=== PATIENT | female | born 1955 | race Caucasian/White ===

== ENCOUNTER → 2016-09-12 | Outpatient (CLI) | payer OTHER | END | disposition home or self-care (01) | LOC: MMGSC 14:17 | PROVIDERS: ATTEND Family Medicine | DX: N39.0 Urinary tract infection, site not specified (principal) | CPT/HCPCS: 87086 ==

== ENCOUNTER → 2016-12-23 | Outpatient (CLI) | payer OTHER ==
[2016-12-23 20:50] LABS: Basophils % (A) 1 %; CHCM 36.9; Eosinophils # (A) 0.1 k/uL (0-0.7); Eosinophils % (A) 1 %; HCT 43.9 % (34.0-46.0); HDW 2.59; HGB 15.7 gm/dL (11.4-16.0); Luc # (Auto) 0.15; Luc % (Auto) 3; Lymphocytes # (A) 1.3 k/uL (1.0-4.8); Lymphocytes % (A) 21 %; MCH 33.1 pg (25.0-35.0); MCHC 35.7 g/dL (31.0-37.0); MCV 92.7 fL (80.0-100.0); Mean Platelet Volume 9.1; Monocytes # (A) 0.4 k/uL (0-1.0); Monocytes % (A) 6 %; Neutrophils # (A) 4.2 k/uL (1.3-7.7); Neutrophils % (A) 68 %; RBC 4.74 m/uL (3.80-5.40); RDW 12.1 % (11.5-15.5); WBC 6.1 k/uL (3.8-10.6); WBC (Perox) 6.49
[2016-12-23 21:04] LABS: ALT 60 U/L (9-52); AST 50 U/L (14-36); Alkaline Phosphatase 71 U/L (38-126); Anion Gap 11 mmol/L; Blood Urea Nitrogen 13 mg/dL (7-17); Calcium 9.5 mg/dL (8.4-10.2); Carbon Dioxide 26 mmol/L (22-30); Chloride 101 mmol/L (98-107); Glucose 94 mg/dL (74-99); Non-African American GFR(MDRD) >60 (>60 ml/min/1.73 sqM); Potassium 3.4 mmol/L (3.5-5.1); Sodium 138 mmol/L (137-145); Total Protein 7.1 g/dL (6.3-8.2)
== END | disposition home or self-care (01) ==
LOC: MMGSC 11:37
PROVIDERS: ATTEND Family Medicine
DX: N39.0 Urinary tract infection, site not specified (principal); D72.819 Decreased white blood cell count, unspecified; R79.89 Other specified abnormal findings of blood chemistry
CPT/HCPCS: 36415; 80053; 85025; 87086

== ENCOUNTER → 2017-01-09 | Outpatient (CLI) | payer OTHER ==
--- NOTE | 2017-01-09 21:21 | CT ---
EXAMINATION TYPE: CT abdomen pelvis w con DATE OF EXAM: 01/09/2017 COMPARISON: NONE HISTORY: Hematuria and Abnormal labs CT DLP: 728 mGycm Automated exposure control for dose reduction was used. TECHNIQUE: Helical acquisition of images was performed from the lung bases through the pelvis. CONTRAST: Performed with Oral Contrast and with IV Contrast, patient injected with 100 mL of Omnipaque 300. FINDINGS: Lung bases are clear. There is no pleural effusion. There is a 6 cm area of isodensity with the liver in the posterior medial right lobe of the liver. Th is has central low attenuation and a relatively well-defined margin. The mass appears to have lower a ttenuation in the liver on the delayed images and this suggests tumor neovascularity. The bile ducts are not dilated. Spleen and pancreas appear normal. Gallbladder appears normal. There is no adrenal mass. Kidneys show satisfactory contrast opacification. There is no hydronephrosi s. There is no retroperitoneal adenopathy. Abdominal aorta is atheromatous. There is no ascites. Appe ndix is not seen. There is no sign of appendicitis. I see no intestinal wall thickening. There are no dilated loops. Bladder is almost empty. There is a 2.3 cm area of increased attenuation at the right side of the uri nary bladder. This could be a bladder mass. There is no free fluid in the pelvis. I see no pelvic lymphadenopathy. There are multiple varicose ve ins in the left adnexal region. I see no bony destructive process. IMPRESSION: THERE IS A SOFT TISSUE DENSITY PROBABLE ENHANCING MASS IN THE URINARY BLADDER ON THE RIGHT SIDE THAT IS SUSPICIOUS FOR PRIMARY BLADDER TUMOR. CYSTOSCOPY IS RECOMMENDED FOR FURTHER EVALUATION. THERE IS A MIXED DENSITY MASS IN THE LIVER THAT IS NONSPECIFIC. I WOULD CONSIDER BOTH BENIGN AND CHANCE GNANT TUMOR. FOLLOW-UP IS RECOMMENDED. MRI SCAN MIGHT BE HELPFUL FOR FURTHER EVALUATION IF CLINICALLY INDICATED. There is equivocal 1 cm area of hypodensity in the posterior right lobe of the liver that raises the possibility of metastatic disease.
== END | disposition home or self-care (01) ==
LOC: RADCTMAIN 18:00
PROVIDERS: ATTEND Family Medicine
DX: M79.89 Other specified soft tissue disorders (principal); K76.89 Other specified diseases of liver; R16.0 Hepatomegaly, not elsewhere classified; R31.9 Hematuria, unspecified
CPT/HCPCS: 74177; Q9967

== ENCOUNTER 2017-03-02 08:49 | Day surgery (SDC) | payer OTHER ==
[2017-03-02] MEDS ORDERED: HYDROmorphone 1 MG/ML 1 ML SYRINGE IVP PRN (09:24)
[2017-03-02] MEDS ORDERED: ALPRAZolam 0.5 MG TAB PO ONE (09:24)
[2017-03-02 09:54] LABS: Prothrombin Time 10.4 sec (9.0-12.0)
[2017-03-02 10:01] VITALS: RESP 16
[2017-03-02 11:52] VITALS: TEMP 96.2
--- NOTE | 2017-03-02 12:00 | US ---
EXAMINATION TYPE: US biopsy liver DATE OF EXAM: 03/02/2017 HISTORY: liver mass. FINDINGS: Maximal barrier technique was utilized. The skin overlying a suitable path to the patient' s mass was localized with ultrasound and the overlying skin prepped and draped. Ultrasound was utili zed with sterile technique. Lidocaine was used for local anesthesia. A skin maurice was made with a sc alpel. An 18-gauge needle was advanced under direct ultrasound guidance and core specimen obtained o f the mass. Specimen submitted in formalin to Pathology. Following the procedure, hemostasis achiev ed and the patient is discharged in stable condition without complication. IMPRESSION:STATUS POST ULTRASOUND GUIDED CORE BIOPSY OF liver MASS, PATHOLOGY IS PENDING. THIS PROCE DURE IS PERFORMED BY THE UNDERSIGNED.
[2017-03-02 15:52] VITALS: BP 130/74; PULSE 68
== END 2017-03-02 16:11 | disposition home or self-care (01) ==
LOC: RADPROMAIN 08:49 → 3OBS 11:00 → RADPROMAIN 16:11
PROVIDERS: ATTEND Internal Medicine Gastroenterology
DX: C22.0 Liver cell carcinoma (principal); K76.0 Fatty (change of) liver, not elsewhere classified
CPT/HCPCS: 85049; 85610; 88313; 88342; 88307; 88341; 96374; 36415; 47000; 76942; J1170

== ENCOUNTER → 2017-03-14 | Outpatient (CLI) | payer OTHER ==
--- NOTE | 2017-03-15 13:02 | PE ---
EXAMINATION TYPE: PET CT fusion skull to thigh DATE OF EXAM: 03/14/2017 COMPARISON: CT abdomen pelvis 01/09/2017 Prior PET/CT: None at this location at the time of interpretation. HISTORY: Liver cancer, history of prior bladder cancer and thyroid cancer TECHNIQUE: Following the intravenous administration of 14.9 mCi of F-18 FDG, whole body images are p erformed from the skull base to the midthigh. Images are reviewed on the computer in the coronal, ax ial, and sagittal planes. Reconstructed rotating images are created on independent workstation and r eviewed on the computer. A localization and attenuation correction CT is performed in conjunction w ith the PET scan. DLP: 444.24 mGycm SCAN: Initial Blood glucose: 89 mg/dL Average Mediastinum SUV: 1.4 Average Liver SUV: 2.2 FINDINGS: NECK: No abnormal uptake THORAX: 2 abnormal areas of uptake are adjacent in the subcarinal region with an SUV value of 4.6 and 4.1 suspicious for metastatic disease. PET image 85. No additional abnormal uptake is within the tho rax. ABDOMEN: No abnormal uptake. Specifically, no abnormal uptake is identified within the liver. There i s subtle photopenic area within the caudate lobe which is expanded on the localization CT. Low metabo lic abnormality should be considered. PELVIS: No abnormal uptake. There is normal uptake within the urinary bladder. Underlying neoplasm ca nnot be evaluated given the radiotracer within the urinary bladder at this time. OSSEOUS STRUCTURES: No abnormal uptake LOCALIZATION CT: Lymphadenopathy is within the subcarinal region corresponding to the abnormal uptake regions. The large caudate lobe is evident. This has an SUV value 1.70. Low Metabolic activity shoul d be considered. COMPARISON: Comparison is made with the March 02 2017 ultrasound-guided biopsy of the liver as well as the prior CT of 01/09/2017. IMPRESSION: 1. Patient's reported liver cancer has low metabolic activity on the PET scan with an SUV value in th e range of 1.7 which is lower than the adjacent liver metabolic activity averaging 2.2. 2. There is hypermetabolic activity within the subcarinal enlarged lymph nodes. Given the low metabol ic activity within the liver lesion, a different type of metastasis should be considered at this leve l. 3. Patient's urinary bladder cannot be adequately evaluated on the PET scan. Recurrent and primary ur inary bladder neoplasm cannot be excluded.
== END | disposition home or self-care (01) ==
LOC: RADPETMAIN 11:52
PROVIDERS: ATTEND Internal Medicine Hematology & Oncology
DX: C22.0 Liver cell carcinoma (principal); R59.0 Localized enlarged lymph nodes
CPT/HCPCS: 78815; A9552

== ENCOUNTER → 2017-04-22 | Outpatient (CLI) | payer OTHER ==
--- NOTE | 2017-04-22 10:21 | CT ---
EXAMINATION TYPE: CT chest w con DATE OF EXAM: 04/22/2017 COMPARISON: PET/CT 03/14/2017. Also, CT 01/09/2017. HISTORY: 61-year-old female Abn PET, lymphadenopathy TECHNIQUE: Contiguous axial scanning of the chest after the administration of 100 mL of Omnipaque 300 . Coronal/sagittal reconstructions performed. CT DLP: 646mGycm. Automatic exposure control utilized for a dose reduction. FINDINGS: The heart is normal size without pericardial effusion. Aorta is normal caliber with mild atherosclerotic arch calcifications and conventional branching gayathri marium. Redemonstrated is borderline to mildly enlarged subcarinal lymph nodes measuring 1.5 and 1.3 cm on ax ial series, image 27 and 29. There is otherwise no thoracic lymphadenopathy identified. Some focal patchy opacity peripheral right upper lobe, axial image 16 is unchanged from 03/14/2017, po ssibly representing some scarring. Right apical pleural-parenchymal scarring is present. No suspiciou s pulmonary nodule or mass is seen. Tiny hiatal hernia. Visualized upper abdomen shows heterogeneous arterial phase enhancing lesion in the right central luke er which is mild mass effect onto the posterior margin of the portal vein. As measures approximately 7.2 cm, and axial image 55 it does not seem to have significantly changed from 03/14/2017. Bones: Endplate spondylosis midthoracic spine. No osseous destructive process. IMPRESSION: 1. The borderline to mildly enlarged subcarinal lymph nodes measuring up to 1.5 cm are relatively unc hanged from the 03/14/2017 PET/CT. No other thoracic lymphadenopathy or suspicious pulmonary nodule/ma ss. 2. Redemonstrated 7.2 cm hypervascular central right hepatic lobe mass. The mass appears relatively s imilar in size as compared to PET/CT of 03/14/2017 but seems to be slightly larger from 01/09/2017 wher e it remeasured 6.6 cm.
== END | disposition home or self-care (01) ==
LOC: RADCTMAIN 08:41
PROVIDERS: ATTEND Internal Medicine Critical Care Medicine
DX: R59.9 Enlarged lymph nodes, unspecified (principal); Z88.1 Allergy status to other antibiotic agents
CPT/HCPCS: 71260; Q9967

== ENCOUNTER 2017-04-23 11:22 | Day surgery (SDC) | payer OTHER ==
[2017-04-21 15:46] VITALS: BMI 29.2
[~2017-04-23 11:22] MED LIST: ALBUTEROL NEB (CONC) 2.5 MG/0.5 ML INHALATION ONE; LACTATED RINGERS 1,000 ML IV ONE; LACTATED RINGERS 1,000 ML IV SCH; LIDOCAINE 2% (PF) 20 MG/ML 10ML INHALATION ONE; Pre Op ABX Message 1 EACH MISC MISCELLANE ONE
[2017-04-23 11:39] VITALS: TEMP 98
[2017-04-23] MEDS ORDERED: LIDOCAINE 1% 20 ML VIAL (10MG/ML) FOR IV START INTRADERMA ONE (11:44)
[2017-04-23 11:48] VITALS: RESP 16
[2017-04-23] MEDS ORDERED: PROPOFOL 10 MG/ML 20 ML VIAL IV ONE (12:38)
[2017-04-23] MEDS ORDERED: LIDOCAINE 1% INJ 10MG/ML (20 ML MDV) ONE (12:38)
[2017-04-23] MEDS ORDERED: LIDOCAINE 2% INJ 20 MG/ML INTRATRACH ONE (12:43)
--- NOTE | 2017-04-23 13:07 | P.PCN ---
Date of Procedure: 04/23/17 Preoperative Diagnosis: Subcarinal lymphadenopathy Postoperative Diagnosis: Same Procedure(s) Performed: Flexible bronchoscopy and transbronchial needle aspirate of subcarinal lymph node Anesthesia: MAC Surgeon: Guru Cervantes Estimated Blood Loss (ml): 5 Pathology: other Condition: stable Disposition: same day Operative Findings: This procedure was done under conscious sedation with anesthetic it is being administered by anesthesia the bedside. After achieving adequate sedation the flexible bronchoscope was inserted to the right nostril and was advanced into the upper airway. Examination of the posterior oropharynx larynx and epiglottis and vocal cords was done and all of his upper airway structures were within normal limits. A total of 2 mL of 1% lidocaine was applied to the vocal cords and following that the bronchoscope was advanced into the upper trachea. Examination of the tracheal bronchial tree was done. Trachea, bilateral mainstem bronchi, right upper lobe bronchus, bronchus intermedius, right middle lobe bronchus, right lower lobe bronchus, left upper lobe bronchus and left lower lobe bronchus were all inspected and there were within normal limits and there were patent without any endobronchial tumors abnormalities noted. Following that the bronchoscope was moved to the main trachea and using a 20- gauge needle, transbronchial needle aspirate of the subcarinal lymph node was done. This was a histology needle and a total of 5-6 passes were obtained. No bedside complications. Total amount of bleeding was less than 5 ML's. Therapeutic airway suctioning was done and the bronchoscope was removed and the samples were sent for analysis. The patient be transferred to recovery in stable condition .
[2017-04-23 13:28] VITALS: BP 121/67; PULSE 69
== END 2017-04-23 13:41 | disposition home or self-care (01) ==
LOC: ORWHC2ENDO 11:22
PROVIDERS: ATTEND Internal Medicine Critical Care Medicine
DX: R59.0 Localized enlarged lymph nodes (principal); E78.5 Hyperlipidemia, unspecified; I10 Essential (primary) hypertension; E03.9 Hypothyroidism, unspecified; K75.9 Inflammatory liver disease, unspecified; Z85.05 Personal history of malignant neoplasm of liver; Z85.51 Personal history of malignant neoplasm of bladder; Z85.850 Personal history of malignant neoplasm of thyroid; Z87.891 Personal history of nicotine dependence; Z80.8 Family history of malignant neoplasm of other organs or systems; Z80.51 Family history of malignant neoplasm of kidney; Z79.82 Long term (current) use of aspirin; Z79.899 Other long term (current) drug therapy; Z88.1 Allergy status to other antibiotic agents
CPT/HCPCS: 94640; 88305; 88173; 31629; J2001 ×3; J2704

== ENCOUNTER → 2017-08-25 | Outpatient (CLI) | payer OTHER ==
[2017-08-25 19:20] LABS: ALT 37 U/L (9-52); AST 25 U/L (14-36); Albumin 4.1 g/dL (3.5-5.0); Alkaline Phosphatase 93 U/L (38-126); Anion Gap 10 mmol/L; Blood Urea Nitrogen 19 mg/dL (7-17); Calcium 10.2 mg/dL (8.4-10.2); Carbon Dioxide 27 mmol/L (22-30); Chloride 103 mmol/L (98-107); Cholesterol 179 mg/dL (<200); Glucose 95 mg/dL (74-99); HDL Cholesterol 59 mg/dL (40-60); LDL Cholesterol,Calculated 89 mg/dL (0-99); Potassium 4.4 mmol/L (3.5-5.1); Sodium 140 mmol/L (137-145); Total Bilirubin 0.3 mg/dL (0.2-1.3); Total Protein 6.7 g/dL (6.3-8.2); Triglycerides 156 mg/dL (<150)
[2017-08-25 19:36] LABS: T4, Free (Free Thyroxine) 1.32 ng/dL (0.78-2.19)
== END | disposition home or self-care (01) ==
LOC: MMGSC 10:39
PROVIDERS: ATTEND Family Medicine
DX: Z00.00 Encounter for general adult medical examination without abnormal findings (principal)
CPT/HCPCS: 36415; 80053; 80061; 84439; 84443

== ENCOUNTER → 2017-09-12 | Outpatient (CLI) | payer OTHER ==
--- NOTE | 2017-09-14 16:59 | PE ---
Nuclear medicine PET/CT HISTORY: Liver cancer, subsequent Patient received 14.3 mCi F-18 FDG intravenously in delayed scanning was performed from the skull bas e to the mid thighs. Localization and attenuation correction CT scan was also performed. Exam is santos elated to prior nuclear medicine PET/CT 05/23/2017 Neck and chest: There is no evident adenopathy. No suspicious hypermetabolic uptake. No mediastinal, axillary, or hilar adenopathy. No evident lung mass. Some apical and upper lobe scarring again noted on the right. Abdomen pelvis: The liver mass is not well appreciated on noncontrast exam. There is no associated hy permetabolic uptake. No retroperitoneal adenopathy. There is no ascites. Osseous structures are stable. IMPRESSION: There is improvement in the appearance of the previously abnormal nuclear medicine PET/CT . No suspicious hypermetabolic uptake.
== END | disposition home or self-care (01) ==
LOC: RADPETMAIN 10:10
PROVIDERS: ATTEND Internal Medicine Hematology & Oncology
DX: C22.8 Malignant neoplasm of liver, primary, unspecified as to type (principal)
CPT/HCPCS: 78815; A9552

== ENCOUNTER → 2017-10-12 | Outpatient (CLI) | payer OTHER ==
--- NOTE | 2017-10-13 09:07 | MM ---
Reason for exam: screening (asymptomatic). Last mammogram was performed 1 year and 2 months ago. History: Patient is postmenopausal and history of other cancer. Taking hormonal contraceptives for 5 years. Physical Findings: A clinical breast exam by your physician is recommended on an annual basis and results should be correlated with mammographic findings. MG Screening Mammo w CAD Bilateral CC and MLO view(s) were taken. Prior study comparison: August 25, 2016, mammogram, performed at [facility]. August 21, 2015, mammogram, performed at [facility]. July 28, 2014, mammogram, performed at [facility]. Finding: There is an increasing group of calcifications in the upper outer quadrant of the left breast 8cm from the nipple. New finding since August 25, 2016, August 21, 2015, and July 28, 2014. ASSESSMENT: Incomplete: need additional imaging evaluation, BI-RAD 0 RECOMMENDATION: Special view mammogram of the left breast. [facility] will attempt to contact patient to return for supplemental views.
== END | disposition home or self-care (01) ==
LOC: RADMAMWWP 07:16
PROVIDERS: ATTEND Family Medicine
DX: Z12.31 Encounter for screening mammogram for malignant neoplasm of breast (principal)
CPT/HCPCS: 77067

== ENCOUNTER → 2017-10-21 | Outpatient (CLI) | payer OTHER ==
--- NOTE | 2017-10-21 09:40 | MM ---
Reason for exam: additional evaluation requested from abnormal screening. Last mammogram was performed less than 1 month ago. History: Patient is postmenopausal and history of other cancer. Taking hormonal contraceptives for 5 years. Physical Findings: Nurse did not find any significant physical abnormalities on exam. MG Work Up Mamm w CAD LT CC with magnification, ML with magnification, and ML view(s) were taken of the left breast. Prior study comparison: October 12, 2017, bilateral MG screening mammo w CAD. August 25, 2016, mammogram, performed at [facility]. There are scattered fibroglandular densities. Finding: There are typically benign coarse, grouped/clustered calcifications in the upper outer quadrant of the left breast, 8cm from the nipple. This is a change and should be viewed with suspicion. New finding since August 25, 2016. These results were verbally communicated with the patient and result sheet given to the patient on 10/21/17. ASSESSMENT: Suspicious, BI-RAD 4 RECOMMENDATION: Surgical consultation and stereotactic core biopsy of the left breast. Called Dr. Laureano with mammographic findings and has scheduled an appointment for the patient for 10/30/17 at 12:[address] Myers. PRELIMINARY REPORT CALLED AND FAXED TO DR. MYERS ON 10/21/17.
== END | disposition home or self-care (01) ==
LOC: RADMAMWWP 08:02
PROVIDERS: ATTEND Family Medicine
DX: R92.8 Other abnormal and inconclusive findings on diagnostic imaging of breast (principal)
CPT/HCPCS: 77065

== ENCOUNTER → 2017-11-27 | Day surgery (SDC) | payer OTHER ==
[2017-11-27 07:22] VITALS: RESP 16; TEMP 98; BMI 26.2
--- NOTE | 2017-11-27 09:18 | PCN ---
PROCEDURE NOTE The patient is a 62-year-old white female who was noted on mammographic evaluation to have an area of suspicious calcification in the left breast in the lateral inferior aspect. The patient on physical examination did not have any dominant mass or nodules of concern. Risks and benefits of the stereotactic biopsy as well as any alternatives were discussed with the patient and the patient has chosen to have a stereotactic biopsy of the left breast. PROCEDURE: The patient was taken to the stereotactic biopsy unit and patient was laid on the stereotactic table. The area of concern was identified and a lateral to medial approach was chosen for the biopsy. After the lesion had been clearly identified, the skin was prepped in a sterile fashion. A total of approximately 20 mL was used during the procedure. This was 1% with bicarb. The needle was driven to the correct coordinates and pre-fire films were obtained. The pre-fire films were adequate and the needle was fired and post-fire films were obtained. These were also showed that the needle was in proper location. Approximately 6 core biopsies were obtained. The specimen was radiographed and calcifications of concern were noted to have been removed. The biopsies was performed with a 9 gauge vacuum-assisted needle. Following this, a SecurMark clip was placed for localization of the biopsy cavity. Radiograph revealed that the estela was in the correct location. The specimen was sent to pathology. The patient tolerated the procedure in stable condition and will follow with Dr. Lesley Ulrich in 1 week. RADHA / SARAH: [id number] /
[2017-11-27 09:21] VITALS: BP 114/70; PULSE 65
--- NOTE | 2017-11-27 11:33 | MM ---
Stereotactic core biopsy left breast. HISTORY: Microcalcifications. The calcifications in question within the left breast were targeted by the undersigned. The examination was performed by the surgeon. Specimen radiograph demonstrates numerous calcifications within the specimen submitted. Post procedural mammogram demonstrates appropriate deployment of radiopaque clip marker. The patient tolerated the procedure well and left the department in stable condition. Pathology results are pending. IMPRESSION: Successful stereotactic core biopsy left breast with pathology results pending. Pathology Results: Benign LEFT BREAST, CORE BIOPSIES: FIBROCYSTIC CHANGE WITH FOCI OF DYSTROPHIC CALCIFICATION IDENTIFIED. Recommendation Follow up mammogram of the left breast in 6 months. POLO
== END ==
LOC: RADMAMWWP 06:52
PROVIDERS: ATTEND Surgery
DX: N60.12 Diffuse cystic mastopathy of left breast (principal); R92.1 Mammographic calcification found on diagnostic imaging of breast; R92.8 Other abnormal and inconclusive findings on diagnostic imaging of breast; Z88.1 Allergy status to other antibiotic agents
CPT/HCPCS: 88305; 19081; A4648; J2001

== ENCOUNTER → 2017-12-03 | Outpatient (CLI) | payer OTHER ==
[2017-12-03 09:47] VITALS: BP 113/82; PULSE 80; TEMP 97; BMI 26.2
--- NOTE | 2017-12-31 13:22 | P.PN ---
Progress Note - Text Progress Note Date: 12/03/17 Patient is status post stereotactic core biopsy of the left breast 11/27/2017. The specimen was benign specific. The patient has no complaints. The area of biopsy is clean and dry. The puncture site is clean and dry. Impression/plan: 1. Benign specific concordant biopsy of the left breast 2. Repeat mammogram of the left breast and physician exam in 6 months time. cc: to DR. Darron Diana
== END | disposition home or self-care (01) ==
LOC: WWCWWP 09:36
PROVIDERS: ATTEND Surgery
DX: R92.8 Other abnormal and inconclusive findings on diagnostic imaging of breast (principal); Z53.9 Procedure and treatment not carried out, unspecified reason

== ENCOUNTER → 2017-12-18 | Outpatient (CLI) | payer OTHER ==
--- NOTE | 2017-12-18 11:27 | CT ---
EXAMINATION TYPE: CT ChestAbdPelvis w con DATE OF EXAM: 12/18/2017 COMPARISON: PET/CT dated 09/12/[address] dated 04/22/2017. CT abdomen pelvis dated 01/09/2017 HISTORY: Liver cancer CT DLP: 1575 mGycm. Automated Exposure Control for Dose Reduction was Utilized. CONTRAST: CT scan of the thorax, abdomen and pelvis is performed with IV Contrast, patient injected with 100 ml mL of Isovue 300. FINDINGS: LUNGS: There is redemonstration of right apical nodular pleural thickening and the patchy opacity aga in present from 03/14/2017 within the peripheral right upper lobe on image 17 appears similar to the p rior study possibly relating to scarring. This was not hypermetabolic on the prior PET/CT. Multifocal spiculated nodules are seen within the medial right lower lobe on series 4 image 32 measur ing 6 mm and on image 35 measuring 5 mm. Groundglass opacity elongated parallel to the pleural surfac e on series 4 image 28 through 32 could relate to atelectasis or pneumonitis. This is contiguous with the larger new pulmonary nodule. There is no pleural effusion or pneumothorax seen. The tracheobron chial tree is patent. MEDIASTINUM: Centrally necrotic-appearing subcarinal lymph node appears to have decreased in size ehsan suring 7 mm in short axis. No new adenopathy is seen. There are no greater than 1 cm hilar or mediast inal lymph nodes. No pericardial effusion is seen. LIVER/GB: The previously seen hypervascular hepatic mass measuring approximately 4.9 x 7.2 cm on the exam of 04/22/2017 no longer demonstrates any component of hypervascularity on early phase imaging (po rtal venous within the liver). There are focal areas of hypoattenuation within the central right hepa tic lobe and within the caudate lobe measuring 1.9 x 1.8 cm and 2.8 x 1.6 cm with the larger contiguo us with the dilated biliary system and elongated on coronal images. The smaller area is thought to re present prior treated tumor with marked decrease in size in the more elongated area also appears to b e contiguous with chronic appearing left portal vein thrombosis with peripheral collateral vessels. The previously seen hypervascular foci on the exam of 04/22/2017 on series 3 image 58 and 59 longer vi sualized on today's examination. Degree of intrahepatic biliary dilatation does appear to have increa sed from the prior PET/CT of 09/12/2017 given the limitation of lack of intravenous contrast on the pr ior PET. Gallbladder is contracted. PANCREAS: No significant abnormality is seen. No ductal dilatation. No peripancreatic fat stranding. SPLEEN: No significant abnormality is seen. No splenomegaly. ADRENALS: No significant abnormality is seen. No nodularity or thickening. KIDNEYS: No significant abnormality is seen. Kidneys enhance symmetrically and there is slight pelvoc aliectasis bilaterally without discrete hydronephrosis. BOWEL: No significant abnormality is seen. No bowel dilatation. Appendix is air and contrast-filled and within normal limits. GENITAL ORGANS: No gross abnormality seen. LYMPH NODES: No greater than 1cm abdominal or pelvic lymph nodes are appreciated. Specifically peripo rtal lymph nodes are not enlarged. OSSEOUS STRUCTURES: Moderate multilevel degenerative changes of the spine and femoral acetabular join ts are present. OTHER: Moderate calcific atheromatous changes are seen of the abdominal aorta and its branches. Abdom inal aorta is of normal course and caliber. IMPRESSION: 1. 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 However there is collateralization and therefore this is fa vored to be subacute to chronic. 2. Marked decrease in size of the known hypervascular hepatoma with central necrosis indicating respo nse to treatment. This relates to the known FDG avid hepatic lesion on the exam of 09/12/2017. 3. No periportal adenopathy. No adenopathy within the chest, abdomen, or pelvis. Previously seen prom inent to enlarged subcarinal lymph node decreased in the interim. 4. New accumulated medial right lower lobe pulmonary nodules. Given the additional areas of probable scarring these could also relate to scarring or inflammatory/infectious change. However short-term fo llow-up is recommended given this patient's history of neoplasm.
== END ==
LOC: RADCTMAIN 06:58
PROVIDERS: ATTEND Internal Medicine Hematology & Oncology
DX: Z03.89 Encounter for observation for other suspected diseases and conditions ruled out (principal); I81 Portal vein thrombosis; R91.1 Solitary pulmonary nodule; Z88.1 Allergy status to other antibiotic agents
CPT/HCPCS: 71260; 74177; Q9967

== ENCOUNTER → 2018-05-26 | Outpatient (CLI) | payer OTHER ==
--- NOTE | 2018-05-26 12:20 | MM ---
Reason for exam: follow-up at short interval from prior study. Last mammogram was performed 7 months ago. History: Patient is postmenopausal and history of other cancer. Benign MG stereo VAD BX LT of the left breast, November 27, 2017. Took hormonal contraceptives for 5 years. Physical Findings: Nurse did not find any significant physical abnormalities on exam. MG Diagnostic Mammo LT w CAD CC and MLO view(s) were taken of the left breast. Prior study comparison: October 21, 2017, left breast MG work up mamm w CAD LT. October 12, 2017, bilateral MG screening mammo w CAD. There are scattered fibroglandular densities. No suspicious calcifications are seen. Previous mammotome biopsy in the left breast. There is no discrete abnormality. These results were verbally communicated with the patient and result sheet given to the patient on 05/26/18. ASSESSMENT: Benign, BI-RAD 2 RECOMMENDATION: Return to routine screening mammogram schedule for both breasts. Back on schedule.
== END | disposition home or self-care (01) ==
LOC: RADMAMWWP 08:44
PROVIDERS: ATTEND Surgery
DX: R92.8 Other abnormal and inconclusive findings on diagnostic imaging of breast (principal)
CPT/HCPCS: 77065

== ENCOUNTER → 2018-06-03 | Outpatient (CLI) | payer OTHER ==
[2018-06-03 11:03] VITALS: BP 112/71; PULSE 73; RESP 18; TEMP 96.6; BMI 24.8
--- NOTE | 2018-06-03 11:14 | P.PN ---
Subjective Progress Note Date: 06/03/18 Principal diagnosis: stero biopsy of the left breast 11-27-17 The patient is a 62-year-old white female who is status post left breast stereotactic core biopsy in November 2017. The pathology was benign and this was benign specific concordant of the left breast. A repeat mammogram was performed on . This showed scattered fibroglandular densities. No suspicious calcifications. Previous mammotome biopsy in the left breast no discrete abnormality. This was a benign BIRADS 2 and repeat bilateral mammogram in 6 months back on schedule is recommended. The patient denies any lumps or masses in her breasts. She denies any abnormal dimple discharge. She has no complaints of pain in either breast. The patient herself has an extensive history including thyroid cancer, bladder cancer, lung cancer, and liver cancer. At this time she is disease free from all of them. The most recent treatment was a MRI directed radiation therapy to the liver. The patient has recently been noted to have an elevated bilirubin to 3.9 for which she is being worked up by GI doctors at [facility]. Family history of cancer 1. Mother bone cancer 2. Father kidney/prostate cancer 3. Patient thyroid cancer (right thyroid) Patient bladder cancer (BURBT, mitomycin infusion into bladder) Patient lung cancer ( chemotherapy, radiation no surgery, treated at [facility]) Patient liver cancer (angio-embolization of the tumor with radiation, chemtherapy of angioembolization, MRI directed radiation April 2018, no surgery) Past Surgical History: 1. thyroid resection 2. 2 Ros: HEENT: prior thyroid cancer lung: lung cancer heart: negative GI: liver cancer :UTI Musculoskeletal: Negative Skin: Negative Social history: Smoke: stopped 6 years ago used to smoke 10-12 cigarettes per day Alcohol: Used to drink 2-3 glasses of wine per day no longer Drugs: Negative Objective - Constitutional General appearance: Present: average body habitus - EENT Eyes: Present: EOMI ENT: Present: hearing grossly normal - Neck Neck: Present: normal ROM - Respiratory Respiratory: bilateral: CTA - Cardiovascular Rhythm: regular Heart sounds: normal: S1, S2 - Gastrointestinal General gastrointestinal: Present: normal bowel sounds, soft - Integumentary Integumentary: Present: normal turgor - Musculoskeletal Musculoskeletal: Present: gait normal - Psychiatric Psychiatric: Present: A&O x's 3, appropriate affect, intact judgment & insight - Additional findings Additional findings: Breast examination: Right breast: Multi-positional exam no dominant masses or nodules of concern Left breast: Multiple positional exam no dominant mass or nodule is of concern Bilateral axilla: No adenopathy of concern Assessment and Plan Assessment: mammogram report reviewed Impression: 1. Patient status post recent left breast mammogram following stereotactic biopsy of the left breast, no lesions of concern noted 2. Patient with prior history of thyroid cancer, lung cancer, bladder cancer, and liver cancer, at this time she has no residual cancers 3. Patient does have elevated bilirubin for which she is following with a GI doctor at [facility] Plan: 1. Repeat bilateral mammogram and physician exam in 6 months 2. Patient will continue to follow with medical and radiation oncologist as well as primary care doctor regarding liver, thyroid, lung, and bladder cancer CC: Dr. Laureano
== END ==
LOC: WWCWWP 09:50
PROVIDERS: ATTEND Surgery
DX: Z53.9 Procedure and treatment not carried out, unspecified reason (principal)

== ENCOUNTER → 2018-11-17 | Outpatient (CLI) | payer OTHER ==
--- NOTE | 2018-11-18 10:03 | MM ---
Reason for exam: screening (asymptomatic). Last mammogram was performed 6 months ago. History: Patient is postmenopausal and history of other cancer. Benign MG stereo VAD BX LT of the left breast, November 27, 2017. Took hormonal contraceptives for 5 years. Physical Findings: A clinical breast exam by your physician is recommended on an annual basis and results should be correlated with mammographic findings. MG Screening Mammo w CAD Bilateral CC and MLO view(s) were taken. Prior study comparison: May 26, 2018, left breast MG diagnostic mammo LT w CAD. October 21, 2017, left breast MG work up mamm w CAD LT. The breast tissue is heterogeneously dense. This may lower the sensitivity of mammography. Benign appearing bilateral calcifications. Left biopsy marker. No significant changes when compared with prior studies. ASSESSMENT: Benign, BI-RAD 2 RECOMMENDATION: Routine screening mammogram of both breasts in 1 year.
== END ==
LOC: RADMAMWWP 07:23
PROVIDERS: ATTEND Surgery
DX: Z12.31 Encounter for screening mammogram for malignant neoplasm of breast (principal)
CPT/HCPCS: 77067